=== PATIENT | male | born 1955 | race Caucasian/White ===

== ENCOUNTER → 2019-06-25 | Outpatient (CLI) | payer OTHER ==
[~2019-06-25] MED LIST: AZOR 5-40 MG T1 EACH PO; BYSTOLIC 5 MG5 M1 PO; LIVALO4 MG PO; MEN'S MULTI-VI1 EACH PO; NORCO 5-325 TA1 EACH PO; SENNA8.6 MG PO
== END ==
LOC: CAT 14:50
DX: Z13.6 Encounter for screening for cardiovascular disorders (principal); I25.10 Atherosclerotic heart disease of native coronary artery without angina pectoris; E78.00 Pure hypercholesterolemia, unspecified

== ENCOUNTER → 2019-06-27 | Outpatient (CLI) | payer OTHER ==
[2019-06-27 13:42] LABS: CREATININE 1.2 mg/dL (0.7-1.3)
== END ==
LOC: CAT 13:11
PROVIDERS: Internal Medicine Cardiovascular Disease
DX: Z01.812 Encounter for preprocedural laboratory examination (principal); J90 Pleural effusion, not elsewhere classified; I25.10 Atherosclerotic heart disease of native coronary artery without angina pectoris; J84.10 Pulmonary fibrosis, unspecified; J98.11 Atelectasis; I70.1 Atherosclerosis of renal artery; I70.0 Atherosclerosis of aorta

== ENCOUNTER → 2019-07-22 | Outpatient (CLI) | payer OTHER ==
[2019-07-22 12:30] LABS: CREATININE 1.2 mg/dL (0.7-1.3); POTASSIUM 4.9 mmol/L (3.5-5.1)
[2019-07-22 16:02] LABS: CLARITY CLOUDY; COLOR RED; SOURCE PLEURAL; TOTAL VOLUME 70 mL
[2019-07-22 16:31] LABS: BF MACROPHAGE 4; BF NEUTROPHILS 3; BF NUCLEATED CELLS 4803; BF RBC 17343
[2019-07-23 09:15] LABS: SOURCE CHEST
[2019-07-23 16:10] LABS: BODY FLUID ALBUMIN 2.7 g/dL (Not Estab.); BODY FLUID AMYLASE 30 U/L (()); BODY FLUID GLUCOSE 147 mg/dL (()); BODY FLUID LDH 298 IU/L (()); BODY FLUID PROTEIN 4.5 g/dL (())
--- NOTE | 2019-07-25 12:07 | PATH ---
[facility] [address] [place] [address] PATHOLOGY RPT PROCEDURE Name: BAKARI LINTON Room #: REG KIM Power.#: [id number] Admission: 07/22/19 Date of : 59 Discharge: Report #: [id number] Path Case #: [id number] Note [facility] Accession Number: [id number] TESTS RESULT FLAG UNITS REF RANGE LAB Clinician Provided Cytology Information No. of containers..01 Other (Miscellaneous) Source: LEFT PLEURAL FLUID DIAGNOSIS: 02 LEFT PLEURAL FLUID NEGATIVE FOR MALIGNANT EPITHELIAL CELLS. REACTIVE MESOTHELIAL CELLS ARE PRESENT. THIS INTERPRETATION INCLUDES EVALUATION OF A CELL BLOCK. PREDOMINANTLY LYMPHOCYTIC INFILTRATE. Pathologist ICD10: 02 J90 Signed out by: 02 Destiny Purcell MD, Pathologist NPI- [id number] Performed by: 01 Chrissie Vergara, Police Dispatcher ([facility]) Gross description: 01 15ML, ORANGE, 1 TP 1 CB /EKATERINA 07/23/2019 1459 Local FLAG LEGEND: L-Low Normal,H-High Normal,LL-Alert Low,HH-Alert High <-Panic Low,>-Panic High,A-Abnormal,AA-Critical Abnormal Performed at: [address] [place] [address] Nico Chamorro MD, [address] [address] Destiny Purcell MD, Specimen Comment: A courtesy copy of this report has been sent to [phone] Specimen Comment: [phone] Specimen Comment: Report sent to / DR MCCAULEY Specimen Comment: A duplicate report has been generated due to demographic updates. Performed at: [address], [place], [place] [address] [address] [address] PATHOLOGY RPT PROCEDURE Name: LINTONBAKARIAlfonso WALLER Room #: REG KIM Shi#: [id number] Admission: 07/22/19 Date of : 59 Discharge: Report #: [id number] Path Case #: [id number] MD iNco Chamorro MD Phone: [phone]
== END ==
LOC: ULTRA 11:41
PROVIDERS: Internal Medicine
DX: Z01.812 Encounter for preprocedural laboratory examination (principal); J90 Pleural effusion, not elsewhere classified

== ENCOUNTER → 2019-08-05 | Outpatient (CLI) | payer OTHER | LOC: RAD 09:57 | DX: J90 Pleural effusion, not elsewhere classified (principal) ==

== ENCOUNTER → 2019-08-25 | Outpatient (CLI) | payer OTHER | LOC: RAD 15:07 | DX: J90 Pleural effusion, not elsewhere classified (principal); J98.11 Atelectasis ==

== ENCOUNTER → 2019-09-16 | Outpatient (CLI) | payer OTHER | LOC: RAD 11:53 | DX: J90 Pleural effusion, not elsewhere classified (principal); J98.11 Atelectasis; J98.4 Other disorders of lung ==

== ENCOUNTER → 2019-10-16 | Outpatient (CLI) | payer OTHER | LOC: RAD 12:23 | DX: J90 Pleural effusion, not elsewhere classified (principal) ==

== ENCOUNTER → 2020-03-17 | Outpatient (CLI) | payer OTHER | LOC: SJCVCIMAG 09:22 | PROVIDERS: ATTEND Internal Medicine Cardiovascular Disease | DX: I25.10 Atherosclerotic heart disease of native coronary artery without angina pectoris (principal); R94.39 Abnormal result of other cardiovascular function study ==